=== PATIENT | male | born 1955 | race Caucasian/White ===

== ENCOUNTER 2019-12-10 02:48 | Emergency (ER) | payer MEDICARE, MEDICAID ==
[~2019-12-10] VITALS: Ht 175.3 cm; Wt 101.6 kg
[2019-12-10 02:48] VITALS: BP 169/96
--- NOTE | 2019-12-10 02:57 | PHYS DOC ---
Past History Past Medical History: Anxiety Past Medical History HIV, TBI General Adult HPI: HPI: ".. I was draining my testicle cyst.. they told me drain it every so often.. I was using a clean 18 needle and syringe.... After I aspirated the cyst I accidentally brought the needle up and cut my bag.. and it will not stop bleeding...." " I would have drain the cyst earlier .. but I wanted to watch the 'Masked [place]..." show..." Patient is a 64 year old male who presents with above hx and complaints of very superficial 2 cm laceration to the scrotal sac. Currently there is no active bleeding. Patient has no history of coagulopathy. Patient does not use exc essive amounts of NSAIDs. Patient does have a history of HIV. Patient does have a history of anxiety disorder. Patient has history of traumatic brain injury. Patient normally follows with Dr. Marti at [facility]. Patient thinks his last tetanus was approximately 10 years ago. Pt. has been drinking alcohol tonight. ( "A few...") Review of Systems: Review of Systems: Constitutional: Denies fever or chills Eyes: Denies change in visual acuity HENT: Denies nasal congestion or sore throat Respiratory: Denies cough or shortness of breath Cardiovascular: Denies chest pain or edema GI: Denies abdominal pain, nausea, vomiting, bloody stools or diarrhea : Denies dysuria Musculoskeletal: Denies back pain or joint pain Integument: Denies rash Complaints of laceration to scrotal area Neurologic: Denies headache, focal weakness or sensory changes Endocrine: Denies polyuria or polydipsia Lymphatic: Denies swollen glands Psychiatric: Denies depression or anxiety Heart Score: Risk Factors: Risk Factors: DM, Current or recent (<one month) smoker, HTN, HLP, family history of CAD, obesity. Risk Scores: Score 0 - 3: 2.5% MACE over next 6 weeks - Discharge Home Score 4 - 6: 20.3% MACE over next 6 weeks - Admit for Clinical Observation Score 7 - 10: 72.7% MACE over next 6 weeks - Early Invasive Strategies Family History: Family History: Noncontributory Current Medications: Current Meds: See nursing for home meds Allergies: Allergies: Codeine Physical Exam: PE: Constitutional: in acute emotional distress, non-toxic appearance. [] HENT: Normocephalic, atraumatic, bilateral external ears normal, oropharynx moist, no oral exudates, nose normal. Old scars Eyes: PERRLA, EOMI, conjunctiva normal, no discharge. [] Glasses Neck: Normal range of motion, no tenderness, supple, no stridor. [] Cardiovascular: Tachycardia heart rate regular rhythm, no murmur [] Lungs & Thorax: Bilateral breath sounds equal apex with scattered wheezes on auscultation [] Abdomen: Bowel sounds normal, soft, no tenderness, no masses, no pulsatile masses. Obese. Has apparent 18-gauge needle puncture monie at area of right testicle and cyst. Above this puncture monie he has a 2 cm very superficial laceration/ scratch. There is adequate hemostasis. There is no penetration through the skin. Circumcised male. Skin: Warm, dry, no erythema, no rash. Puncture and scratch / laceration as per abdomen exam Back: No tenderness, no CVA tenderness. [] Extremities: No tenderness, no cyanosis, no clubbing, ROM intact, no edema. [] Neurologic: Alert and oriented X 3, normal motor function, normal sensory function, no focal deficits noted. [] Psychologic: Affect extremely anxious, judgement normal, mood normal. [] EKG: EKG: [] Radiology/Procedures: Radiology/Procedures: [] Course & Med Decision Making: Course & Med Decision Making Pertinent Labs and Imaging studies reviewed. (See chart for details) Laceration cleaned with soap and water and then peroxide. There is adequate hemostasis. Does have a puncture monie at area of aspiration. Does have a very superficial 2 cm scratch or laceration above the puncture monie. No active bleeding. Patient's tetanus is updated. Antibiotic ointment applied. Patient to keep area clean and dry. Polysporin 4 times a day. Patient follow-up primary care. Patient follow-up with his urologist. Return if any concerns. [] Impression: 1. History of right testicular/epididymis cyst formation-chronic 2. Accidental scratch/laceration to right scrotal area 2 cm ( did not require sutures or derma mckee) 3. Hx. of HIV 4. Hx. of Anxiety Disorder 5. Hx. of Traumatic Brain Injury Magdaleno Disclaimer: Magdaleno Disclaimer: This electronic medical record was generated, in whole or in part, using a voice recognition dictation system. Departure Departure: Disposition: 01 HOME/RESIDENCE PRIOR TO ADM Condition: STABLE Magdaleno Disclaimer This chart was dictated in whole or in part using Voice Recognition software in a busy, high-work load, and often noisy Emergency Department environment. It may contain unintended and wholly unrecognized errors or omissions. Discharge Summary Visit Information Final Diagnosis Problems Medical Problems: (1) Laceration Status: Acute Brief Hospital Course Allergies Allergies Coded Allergies Type Severity Reaction Last Updated Verified codeine Allergy Unknown Unknown 12/10/19 Yes Vital Signs Vital Signs Date Time Temp Pulse Resp B/P (MAP) Pulse Ox O2 Delivery O2 Flow Rate FiO2 12/10/19 02:48 98.7 92 20 169/96 (120) 100 Room Air Brief Hospital Course Mr. Camacho is a 64 old [sex] who presented with [ ] Discharge Information Dischare Medications Current Medications Bacitracin (Bacitracin Topical Pkt) 1 pkt STK-MED ONCE TP ; Start 12/10/19 at 03:06; Stop 12/10/19 at 03:07; Status DC Tetanus/ Diphtheria Toxoids Adsorbed (Tenivac Vial) 0.5 ml ONCE ONCE VAX IM ; Start 12/10/19 at 03:15; Stop 12/10/19 at 03:16; Status Cancel Diphtheria/ Pertussis/Tetanus Vacc (ADACEL TDap SYRINGE) 0.5 ml STK-MED ONCE VAX IM ; Start 12/10/19 at 03:14; Stop 12/10/19 at 03:14; Status DC Diphtheria/ Pertussis/Tetanus Vacc (ADACEL TDap SYRINGE) 0.5 ml ONCE ONCE VAX IM Last administered on 12/10/19at 04:15; Start 12/10/19 at 04:15; Stop 12/10/19 at 04:16; Status DC Bacitracin (Bacitracin Topical Pkt) 1 pkt 1X ONCE TP Last administered on 12/10/19at 04:15; Start 12/10/19 at 04:15; Stop 12/10/19 at 04:16; Status MELISSA ROUSSEAU MD December 10, 2019 02:56
[2019-12-10] MEDS ORDERED: BACITRACIN ZINC TOPICAL OINT PACKET. TP ONE ×2 (03:06→04:15)
[2019-12-10] MEDS ORDERED: DIPH,PERTUSS(ACELL),TET VAC/PF 0.5 ML SYRINGE. VAX IM ONE ×2 (03:14→04:15)
[2019-12-10] MEDS ORDERED: TETANUS AND DIPHTHERIA TOX/PF 0.5 ML VIAL. VAX IM ONE (03:15)
== END 2019-12-10 03:45 | disposition home or self-care (01) ==
LOC: ER 02:48
DX: S31.31XA Laceration without foreign body of scrotum and testes, initial encounter (principal); N50.3 Cyst of epididymis; F41.9 Anxiety disorder, unspecified; Z87.820 Personal history of traumatic brain injury; Z88.5 Allergy status to narcotic agent; Z21 Asymptomatic human immunodeficiency virus [HIV] infection status; W26.8XXA Contact with other sharp object(s), not elsewhere classified, initial encounter; Y93.89 Activity, other specified; Y92.89 Other specified places as the place of occurrence of the external cause; Y99.8 Other external cause status
CPT/HCPCS: 10160; 90471; 90715; 99283; 99284